=== PATIENT | male | born 1995 | race Caucasian/White ===

== ENCOUNTER 2018-03-07 08:10 | Emergency (ER) | payer SELFPAY ==
--- NOTE | 2018-03-07 08:56 | EDM.PDOC ---
ED HPI GENERAL MEDICAL PROBLEM - General Chief Complaint: Head Injury Stated Complaint: HIT IN HEAD AT WORK YESTERDAY Time Seen by Provider: 03/07/18 08:38 Source of Information: Reports: Patient, Family, RN Notes Reviewed History Limitations: Reports: No Limitations - History of Present Illness INITIAL COMMENTS - FREE TEXT/NARRATIVE: 22-year-old gentleman presents emergency department today following a head injury at work, he was hit in head with a large piece of metal he was wearing a hard hat the hardhat did not break there was no loss of consciousness he has no nausea and vomiting no troubles with the vision he does complain of some neck pain no headache he does have some numbness and tingling in the back of his scalp where the hardhat strap was riding Left Posterior Head Pain Score (Numeric/FACES): 7 - Related Data Allergies Allergy/AdvReac Type Severity Reaction Status Date / Time No Known Allergies Allergy Verified 03/07/18 08:29 Home Meds: Home Meds NK [No Known Home Meds] 03/07/18 [History] Past Medical History - Past Surgical History Musculoskeletal Surgical History: Reports: Other (See Below) Other Musculoskeletal Surgeries/Procedures:: sprained his neck in football, four years ago Social & Family History - Tobacco Use Smoking Status *Q: Current Every Day Smoker Years of Tobacco use: 1 Packs/Tins Daily: 0.5 - Caffeine Use Caffeine Use: Reports: Coffee - Recreational Drug Use Recreational Drug Use: No ED ROS GENERAL - Review of Systems Review Of Systems: See Below Constitutional: Reports: No Symptoms HEENT: Reports: No Symptoms Respiratory: Reports: No Symptoms Cardiovascular: Reports: No Symptoms GI/Abdominal: Reports: No Symptoms : Reports: No Symptoms Musculoskeletal: Reports: Neck Pain Skin: Reports: No Symptoms Neurological: Reports: No Symptoms, Tingling ED EXAM, HEAD INJURY - Physical Exam Exam: See Below Text/Narrative:: General: Male, not in any distress, alert and oriented x3 HEENT: head is atraumatic normocephalic, eyes pupils equal round reactive to light, sclera clear no conjunctivitis appreciated. Ears tympanic membranes clear and mane landmarks and light reflex are present bilaterally canals are clear. Nose no septal deviation, nares are clear, no blood present. Mouth mucosa is moist and pink no erythema or exudate noted in soft palate, tongue is midline uvula is midline, dentition is intact. Neck: Supple no thyromegaly no tracheal deviation. Nodes: Cervical nodes subclavicular nodes nontender no palpable lymphadenopathy noted. Lungs: clear to auscultation bilaterally with symmetrical respirations, no adventitious noise appreciated. CV: Regular rate and rhythm S1 and S2 appreciated no murmurs rubs or gallops noted. Abdomen: Soft, nontender, no palpable masses or organomegaly appreciated, no distention no guarding bowel sounds are present, . Neuro: Cranial nerves II test with pupillary light reflex 5 mm to 3 mm bilaterally, CN III test pupillary constriction, lid elevation and eye abduction bilaterally, CN IV downward movement of eyes bilaterally, CN V good jaw movement, CN lateral deviation of the eyes bilaterally to finger movement , CN VII symmetrical smile shows teeth without difficulty, CN VIII pass finger rub to ears bilaterally, CN IX adequate voice and tone, CN X adequate voice and tone no difficulty swallowing, CN XI can shrug shoulders without difficulty, CN XII can stick tongue out without difficulty, cranial nerves II to XII intact as tested, power is 5 out 5 in upper and lower extremities, patellar reflex, biceps reflex +2 can do finger to nose without difficulty, no dysdiadochokinesis , no difficulty with rapid alternating movements can do [id number] without difficulty, Romberg is negative, has adequate gait can do heel to toe, can toe walk and heel walk no cerebellar dysfunction can not do duck walk due to knee problems, no focal neurologic deficit Course - Vital Signs Last Recorded V/S: Last Vital Signs Temp 96.3 F 03/07/18 08:32 Pulse 64 03/07/18 08:32 Resp 15 03/07/18 08:32 BP 138/44 L 03/07/18 08:32 Pulse Ox 94 L 03/07/18 08:32 Departure - Departure Time of Disposition: 08:55 Disposition: Home, Self-Care 01 Condition: Good Clinical Impression: Neck strain Qualifiers: Encounter type: initial encounter Qualified Code(s): S16.1XXA - Strain of muscle, fascia and tendon at neck level, initial encounter Head injury Qualifiers: Encounter type: initial encounter Qualified Code(s): S09.90XA - Unspecified injury of head, initial encounter - Discharge Information Referrals: PCP,None [Primary Care Provider] - Additional Instructions: Use ibuprofen as needed for pain control, Please followup with your primary care provider in 3-5 days if not better, please call return to the emergency department with worsening of symptoms. - Assessment/Plan Plan: Assessment Acuity = acute Site and laterality = head injury with neck strain Etiology = secondary to trauma Manifestations = pain and numbness and tingling Location of injury = work Lab values = none Plan Discussed options with him including image studies however elected to do watchful waiting after discussing risks and benefits of CAT scan he is going to use ibuprofen for pain control follow up with his primary care in 3-5 days if not better This note was dictated using [employer] voice recognition software please call with any questions on syntax or grammar.
== END 2018-03-07 09:07 | disposition home or self-care (01) ==
LOC: JP.ED 08:10
DX: S16.1XXA Strain of muscle, fascia and tendon at neck level, initial encounter (principal); S09.90XA Unspecified injury of head, initial encounter; F17.210 Nicotine dependence, cigarettes, uncomplicated; W22.8XXA Striking against or struck by other objects, initial encounter
CPT/HCPCS: 99284